=== PATIENT | female | born 1950 | race Caucasian/White ===

== ENCOUNTER 2016-10-25 11:13 | Emergency (ER) | payer OTHER ==
[~2016-10-25] VITALS: Ht 160 cm; Wt 81.9 kg
[~2016-10-25 11:13] MED LIST: ALPRAZOLAM0.25 MG PO; LISINOPRIL10 MG PO; MUSCLE RELAXER; PRILOSEC40 MG PO; VALIUM
[2016-10-25 12:22] LABS: EOSINOPHIL COUNT 0.1 K/uL (0-0.3); HEMATOCRIT 38.2 % (36.0-46.0); IMMATURE GRANULOCYTE (%) 0.2 % (0.0-0.7); IMMATURE GRANULOCYTE COUNT 0.1 K/uL; LYMPHOCYTE COUNT 1.2 K/uL (1.0-2.8); MCH 27.6 PG (29.0-34.0); MCHC 33.2 G/DL (30.0-36.0); MEAN PLAT.VOLUME 8.4 uM^3 (9.5-12.4); MONOCYTE (%) 7.8 % (3-12); MONOCYTE COUNT 0.5 K/uL (0-0.8); NEUTROPHIL (%) 70.8 % (45-76); NEUTROPHIL COUNT 4.2 K/uL (1.8-6.4); PLATELET COUNT 309 K/uL (156-360); RBC DIS.WIDTH-CV 13.2 % (11.8-14.6); RBC DIS.WIDTH-SD 39.3 % (39-53); WHITE BLOOD COUNT 5.9 K/uL (4.1-10.2)
[2016-10-25 12:33] LABS: CHLORIDE 105 mEq/L (99-109); SODIUM 142 mEq/L (136-147)
[2016-10-25 12:35] LABS: GLUCOSE 91 mg/dL (70-99)
[2016-10-25 12:36] LABS: ANION GAP 11 MEQ/L (2-14)
[2016-10-25 12:39] LABS: GFR ESTIMATE (CALCULATED) > 59 mL/min/; UREA NITROGEN (BUN) 8 mg/dL (9-23)
[2016-10-25 12:50] LABS: TROP-I INTERPRETATION NEGATIVE; TROPONIN-I < 0.01 ng/mL (0.0-0.30)
[2016-10-25 14:06] LABS: ADD MIUA? NO; BILIRUBIN NEGATIVE; BLOOD NEGATIVE; COLOR STRAW ((YELLOW)); GLUCOSE (STRIP) NEGATIVE; KETONES NEGATIVE; LEUKOCYTES NEGATIVE; NITRITE NEGATIVE; PROTEIN (STRIP) NEGATIVE; SPECIFIC GRAVITY 1.006 (1.000-1.030); UCUL ADDED? NO; UROBILINOGEN 0.2 MG/DL (0.2-1.0)
[2016-10-25] MEDS ORDERED: TESSALON PERLE100 MG PO (16:35)
[2016-10-25] MEDS ORDERED: MOTRIN800 MG PO (16:35)
[2016-10-25 16:50] VITALS: BP 165/69
== END 2016-10-25 17:30 | disposition home or self-care (01) ==
LOC: EME 11:13
PROVIDERS: Emergency Medicine
DX: R07.89 Other chest pain (principal); R20.0 Anesthesia of skin; R20.2 Paresthesia of skin; R05 Cough; Z82.49 Family history of ischemic heart disease and other diseases of the circulatory system
CPT/HCPCS: 70450; 70551; 71010; 80048; 81003; 84484; 85025; 93005; 99281; 99285; J1885; J2060

== ENCOUNTER → 2017-11-13 | Outpatient (CLI) | payer MEDICARE, OTHER ==
[~2017-11-13] MED LIST changes: +MOTRIN800 MG PO; +TESSALON PERLE100 MG PO
== END | disposition home or self-care (01) ==
LOC: CDC 10:30
DX: Z01.810 Encounter for preprocedural cardiovascular examination (principal); M72.0 Palmar fascial fibromatosis [Dupuytren]; M79.642 Pain in left hand; R00.1 Bradycardia, unspecified; R94.31 Abnormal electrocardiogram [ECG] [EKG]
CPT/HCPCS: 93000